=== PATIENT | female | born 1940 | race Hispanic/Latino ===

== ENCOUNTER → 2017-10-19 | Outpatient (CLI) | payer OTHER ==
[~2017-10-19] MED LIST: ASPI-1181 PO; ATOR-2 PO; CLOP75TA14 PO; CYAN200018 PO; DULO60CA44 PO; GADOBENATE DIMEGLUMINE 20 ML IV ONE; GLIP10TA9 PO; LISI2.5T2 PO; METO25TA6 PO; NABU500T3 PO; OMEG1CAP43 PO; PANT40TA25 PO; PSYL1CAP2 PO
== END | disposition home or self-care (01) ==
LOC: RAH 08:08
PROVIDERS: ATTEND Family Medicine
DX: D35.2 Benign neoplasm of pituitary gland (principal); J34.1 Cyst and mucocele of nose and nasal sinus
CPT/HCPCS: 70553; A9577

== ENCOUNTER → 2017-11-03 | Outpatient (CLI) | payer OTHER ==
[~2017-11-03] MED LIST changes: -GADOBENATE DIMEGLUMINE 20 ML IV ONE
== END | disposition home or self-care (01) ==
LOC: SHCH 11:56
PROVIDERS: ATTEND Internal Medicine Cardiovascular Disease
DX: I35.1 Nonrheumatic aortic (valve) insufficiency (principal)
CPT/HCPCS: 93306

== ENCOUNTER → 2017-12-04 | Outpatient (CLI) | payer OTHER ==
[~2017-12-04] VITALS: Ht 160 cm; Wt 93.0 kg
[~2017-12-04] MED LIST changes: +REGADENOSON 0.4 MG/5 ML PF SYG IVP SCH
== END | disposition home or self-care (01) ==
LOC: SHCH 08:40
PROVIDERS: ATTEND Internal Medicine Cardiovascular Disease
DX: I20.9 Angina pectoris, unspecified (principal); R05 Cough; R51 Headache
CPT/HCPCS: 78452; 93017; 96374; A9500 ×2; J2785

== ENCOUNTER → 2017-12-20 | Outpatient (CLI) | payer OTHER ==
[~2017-12-20] MED LIST changes: -REGADENOSON 0.4 MG/5 ML PF SYG IVP SCH
== END | disposition home or self-care (01) ==
LOC: RAH 10:42
PROVIDERS: ATTEND Family Medicine
DX: Z12.31 Encounter for screening mammogram for malignant neoplasm of breast (principal)
CPT/HCPCS: 77067

== ENCOUNTER → 2018-05-23 | Outpatient (CLI) | payer OTHER ==
[~2018-05-23] MED LIST changes: -CYAN200018 PO; +GABA-529 PO; +GADODIAMIDE 10 MMOL/20 ML ML IV ONE; +INSU3INS10 SQ; +ISOS30TA6 PO; -NABU500T3 PO; -PSYL1CAP2 PO
== END | disposition home or self-care (01) ==
LOC: RAH 13:49
PROVIDERS: ATTEND Neurological Surgery
DX: M27.40 Unspecified cyst of jaw (principal); D35.2 Benign neoplasm of pituitary gland; D33.2 Benign neoplasm of brain, unspecified; I10 Essential (primary) hypertension; E11.9 Type 2 diabetes mellitus without complications; E78.5 Hyperlipidemia, unspecified; Z79.899 Other long term (current) drug therapy
CPT/HCPCS: 70553; A9579

== ENCOUNTER 2018-07-14 15:43 | Emergency (ER) | payer OTHER ==
[~2018-07-14 15:43] MED LIST changes: -GADODIAMIDE 10 MMOL/20 ML ML IV ONE
[2018-07-14] MEDS ORDERED: ASPIRIN 325 MG TABLET ONE (15:59)
[2018-07-14 16:14] LABS: BASOPHILS % (AUTO) 1.3 % (0.0-5.0); EOSINOPHILS % (AUTO) 2.1 % (0.0-8.0); HEMATOCRIT 35.4 % (36-48); LYMPHOCYTES % (AUTO) 24.1 % (21.0-51.0); MEAN CORPUSCULAR HEMOGLOBIN 30.5 pg (27.0-33.0); MEAN CORPUSCULAR HGB CONC 33.9 g/dL (32.0-36.0); MONOCYTES % (AUTO) 5.4 % (3.0-13.0); NEUTROPHILS % (AUTO) 67.1 % (40.0-77.0); PLATELET COUNT (AUTO) 240 K/uL (130-400); RED BLOOD CELL COUNT(AUTO) 3.93 MIL/uL (4.00-5.50); RED CELL DISTRIBUTION WIDTH 15.1 % (11.0-15.5); WHITE BLOOD COUNT (AUTO) 7.9 K/uL (4.8-10.8)
[2018-07-14 16:36] LABS: B-TYPE NATRIURETIC PEPTIDE 116 pg/mL (0-100)
[2018-07-14 16:38] LABS: CREATININE 0.9 mg/dL (0.5-1.5)
[2018-07-14 16:40] LABS: ALBUMIN 3.1 g/dL (3.5-5.0); BILIRUBIN,TOTAL 0.4 mg/dL (0.2-1.0); TOTAL PROTEIN, SERUM 6.9 g/dL (6.0-8.3)
[2018-07-14] MEDS ORDERED: NITROGLYCERIN 1GM/1 INCH PACKET TD ONE (16:42)
[2018-07-14 18:40] LABS: APPEARANCE,URINE Clear (CLEAR); BILIRUBIN,URINE Negative (NEGATIVE); COLOR,URINE Yellow (YELLOW); GLUCOSE, URINE (UA) Negative (NEGATIVE); KETONES,URINE Negative (NEGATIVE); LEUKOCYTE ESTERASE ,URINE Negative (NEGATIVE); NITRATE,URINE Negative (NEGATIVE); OCCULT BLOOD,URINE Negative (NEGATIVE); PH,URINE 7.5 (5.0-8.0); PROTEIN,URINE Negative (NEGATIVE); UROBILINOGEN,URINE 0.2 mg/dL (0.2-1.0)
== END 2018-07-14 20:12 | disposition home or self-care (01) ==
LOC: EDH 15:43
DX: R07.9 Chest pain, unspecified (principal); E11.9 Type 2 diabetes mellitus without complications; I10 Essential (primary) hypertension; I38 Endocarditis, valve unspecified; Z91.040 Latex allergy status; Z91.048 Other nonmedicinal substance allergy status; Z87.891 Personal history of nicotine dependence; Z98.890 Other specified postprocedural states
CPT/HCPCS: 36415; 71045; 80053; 81003; 82550; 83880; 84484; 85025; 93005

== ENCOUNTER → 2019-01-04 | Outpatient (CLI) | payer OTHER | END | disposition home or self-care (01) | LOC: RAH 13:00 | PROVIDERS: ATTEND Family Medicine | DX: Z12.31 Encounter for screening mammogram for malignant neoplasm of breast (principal) | CPT/HCPCS: 77067 ==

== ENCOUNTER 2019-04-09 19:51 | Emergency (ER) | payer OTHER ==
[2019-04-09 20:18] LABS: EOSINOPHILS % (AUTO) 1.4 % (0.0-8.0); HEMATOCRIT 41.9 % (36-48); MEAN CORPUSCULAR HGB CONC 33.7 g/dL (32.0-36.0); MONOCYTES % (AUTO) 6.7 % (3.0-13.0); NEUTROPHILS % (AUTO) 68.9 % (40.0-77.0); NUCLEATED RED BLOOD CELLS 0.1 % (0.0-0.19); PLATELET COUNT (AUTO) 267 K/uL (130-400); RED BLOOD CELL COUNT(AUTO) 4.56 MIL/uL (4.00-5.50); RED CELL DISTRIBUTION WIDTH 13.7 % (11.0-15.5); WHITE BLOOD COUNT (AUTO) 10.6 K/uL (4.8-10.8)
[2019-04-09] MEDS ORDERED: TETANUS/DIPHTHERIA TOXOID [ADULT] 0.5 ML VIAL IM ONE (20:22)
[2019-04-09 20:23] LABS: CARBON DIOXIDE 29 mmol/L (21-32); CHLORIDE 94 mmol/L (101-111); CREATININE 0.9 mg/dL (0.5-1.5); GLOMERULAR FILTR. RATE CALC 64 mL/min (>60); GLUCOSE,RANDOM 278 mg/dL (70-105); POTASSIUM 4.6 mmol/L (3.5-5.1); SODIUM SERUM 130 mmol/L (136-145); UREA NITROGEN, BLOOD 18 mg/dL (7-18)
[2019-04-09 20:27] LABS: ALANINE AMINOTRANSFERASE 29 U/L (12-78); ALBUMIN 3.6 g/dL (3.5-5.0); ALCOHOL, BLOOD < 3 mg/dL (0-10); ASPARTATE AMINOTRANSFERASE 26 U/L (10-37); BILIRUBIN,TOTAL 0.5 mg/dL (0.2-1.0); CREATINE KINASE, TOTAL 82 U/L (21-232); LIPASE 90 U/L (114-286)
[2019-04-09 20:37] LABS: INR 0.95 (0.85-1.15); PARTIAL THROMBOPLASTIN TIME 27.6 SEC (26.3-35.5)
[2019-04-09] MEDS ORDERED: ACETAMINOPHEN EXTRA STRENGTH 500 MG TABLET ONE (21:14)
== END 2019-04-10 00:24 | disposition home or self-care (01) ==
LOC: EDH 19:51
DX: S16.1XXA Strain of muscle, fascia and tendon at neck level, initial encounter (principal); S46.911A Strain of unspecified muscle, fascia and tendon at shoulder and upper arm level, right arm, initial encounter; S00.83XA Contusion of other part of head, initial encounter; R07.89 Other chest pain; E11.9 Type 2 diabetes mellitus without complications; I10 Essential (primary) hypertension; Z91.040 Latex allergy status; Z88.8 Allergy status to other drugs, medicaments and biological substances; Z98.890 Other specified postprocedural states; Z95.1 Presence of aortocoronary bypass graft; W01.0XXA Fall on same level from slipping, tripping and stumbling without subsequent striking against object, initial encounter; Y93.89 Activity, other specified; Y92.89 Other specified places as the place of occurrence of the external cause; Y99.8 Other external cause status
CPT/HCPCS: 36415; 70450; 71045; 72125; 73030; 80053; 82550; 83690; 84484 ×2; 85025; 85610; 85730; 86850; 86900; 86901; 90471; 90714; 93005 ×2; 99285; G0480

== ENCOUNTER 2019-11-12 09:02 | Emergency (ER) | payer OTHER ==
[2019-11-12 09:34] LABS: BASOPHILS % (AUTO) 0.3 % (0.0-5.0); EOSINOPHILS % (AUTO) 2.3 % (0.0-8.0); LYMPHOCYTES % (AUTO) 22.7 % (21.0-51.0); MEAN CORPUSCULAR HEMOGLOBIN 30.2 pg (27.0-33.0); MEAN CORPUSCULAR HGB CONC 33.3 g/dL (32.0-36.0); MEAN CORPUSCULAR VOLUME 90.9 fL (79-99); MONOCYTES % (AUTO) 5.5 % (3.0-13.0); NEUTROPHILS % (AUTO) 68.7 % (40.0-77.0); PLATELET COUNT (AUTO) 235 K/uL (130-400); RED CELL DISTRIBUTION WIDTH 13.3 % (11.0-15.5); WHITE BLOOD COUNT (AUTO) 7.4 K/uL (4.8-10.8)
[2019-11-12 09:52] LABS: B-TYPE NATRIURETIC PEPTIDE 20 pg/mL (0-100)
[2019-11-12 09:55] LABS: CREATININE 0.8 mg/dL (0.5-1.5); POTASSIUM 4.4 mmol/L (3.5-5.1)
[2019-11-12 09:56] LABS: PROTHROMBIN TIME 10.5 SEC (9.6-11.6)
[2019-11-12 10:03] LABS: ALBUMIN 3.2 g/dL (3.5-5.0); BILIRUBIN,TOTAL 0.6 mg/dL (0.2-1.0); TOTAL PROTEIN, SERUM 7.3 g/dL (6.0-8.3)
[2019-11-12] MEDS ORDERED: NITROGLYCERIN 1GM/1 INCH PACKET TD ONE (11:07)
== END 2019-11-12 15:28 | disposition home or self-care (01) ==
LOC: EDH 09:02
DX: R06.00 Dyspnea, unspecified (principal); R00.2 Palpitations; E11.9 Type 2 diabetes mellitus without complications; I10 Essential (primary) hypertension; Z98.890 Other specified postprocedural states; Z87.891 Personal history of nicotine dependence; Z88.6 Allergy status to analgesic agent; Z91.040 Latex allergy status
CPT/HCPCS: 36415; 71045; 80053; 82550; 83880; 84484; 85025; 85378; 85610; 85730; 93005

== ENCOUNTER → 2020-01-02 | Outpatient (CLI) | payer OTHER ==
[~2020-01-02] VITALS: Ht 160 cm; Wt 90.3 kg
[~2020-01-02] MED LIST changes: +REGADENOSON 0.4 MG/5 ML PF SYG IVP SCH
== END | disposition home or self-care (01) ==
LOC: SHCH 09:00
PROVIDERS: ATTEND Internal Medicine Cardiovascular Disease
DX: I20.9 Angina pectoris, unspecified (principal)
CPT/HCPCS: 78452; 93017; 96374; A9500 ×2; J2785

== ENCOUNTER → 2020-01-06 | Outpatient (CLI) | payer OTHER ==
[~2020-01-06] MED LIST changes: -REGADENOSON 0.4 MG/5 ML PF SYG IVP SCH
== END | disposition home or self-care (01) ==
LOC: SHCH 11:12
PROVIDERS: ATTEND Internal Medicine Cardiovascular Disease
DX: Z95.3 Presence of xenogenic heart valve (principal); I20.9 Angina pectoris, unspecified; I51.7 Cardiomegaly
CPT/HCPCS: 93306; 93356

== ENCOUNTER → 2020-08-10 | Outpatient (CLI) | payer OTHER ==
[~2020-08-10] VITALS: Ht 162.6 cm; Wt 93.9 kg
[~2020-08-10] MED LIST changes: -ASPI-1181 PO; +ASPI-1443 PO; -GABA-529 PO; -GLIP10TA9 PO; +INSU100V37 SQ; -INSU3INS10 SQ; +LIRA0.6P SQ; +OMEG1200 PO; -OMEG1CAP43 PO; -PANT40TA25 PO
[2020-08-10 12:25] VITALS: BP 151/66
[2020-08-10 12:57] LABS: BASOPHILS % (AUTO) 0.2 % (0.0-5.0); EOSINOPHILS % (AUTO) 0.8 % (0.0-8.0); HEMATOCRIT 43.1 % (36-48); LYMPHOCYTES % (AUTO) 18.6 % (21.0-51.0); MEAN CORPUSCULAR HGB CONC 32.5 g/dL (32.0-36.0); MEAN CORPUSCULAR VOLUME 92.3 fL (79-99); MONOCYTES % (AUTO) 4.3 % (3.0-13.0); NEUTROPHILS % (AUTO) 75.6 % (40.0-77.0); PLATELET COUNT (AUTO) 272 K/uL (130-400); RED BLOOD CELL COUNT(AUTO) 4.67 MIL/uL (4.00-5.50); RED CELL DISTRIBUTION WIDTH 13.7 % (11.0-15.5); WHITE BLOOD COUNT (AUTO) 14.7 K/uL (4.8-10.8)
[2020-08-10 13:03] LABS: APPEARANCE,URINE Clear (CLEAR); BILIRUBIN,URINE Negative (NEGATIVE); COLOR,URINE Yellow (YELLOW); GLUCOSE, URINE (UA) >=1000 mg/dL (NEGATIVE); KETONES,URINE Negative (NEGATIVE); LEUKOCYTE ESTERASE ,URINE Negative (NEGATIVE); NITRATE,URINE Negative (NEGATIVE); OCCULT BLOOD,URINE Negative (NEGATIVE); PH,URINE 6.5 (5.0-8.0); PROTEIN,URINE Trace mg/dL (NEGATIVE)
[2020-08-10 13:08] LABS: BACTERIA,URINE Rare /HPF (None Seen); RBC,URINE 0-1 /HPF (0-1); WBC,URINE 0-1 /HPF (0-1)
[2020-08-10 13:09] LABS: CREATININE 0.9 mg/dL (0.5-1.5)
[2020-08-10 13:09] LABS: SQUAMOUS EPITHELIAL CELL,UR Few /HPF (0-2)
[2020-08-10 13:23] LABS: PARTIAL THROMBOPLASTIN TIME 25.7 SEC (26.3-35.5)
[2020-08-10 13:39] LABS: INR 0.94 (0.85-1.15); PROTHROMBIN TIME 10.2 SEC (9.6-11.6)
--- NOTE | 2020-08-11 14:02 | NUR ---
PT WITH ABNORMAL WBC AND SYMPTOMS OF THROAT AND EAR PAIN. TREVON BUSH PAGED.
== END ==
LOC: EDSTATUS 11:00 → DAH 11:19
PROVIDERS: ATTEND Internal Medicine Cardiovascular Disease
DX: Z01.812 Encounter for preprocedural laboratory examination (principal); I25.119 Atherosclerotic heart disease of native coronary artery with unspecified angina pectoris; I10 Essential (primary) hypertension; R07.89 Other chest pain; E11.9 Type 2 diabetes mellitus without complications; E78.5 Hyperlipidemia, unspecified; Z79.82 Long term (current) use of aspirin; Z79.899 Other long term (current) drug therapy
CPT/HCPCS: 36415; 71045; 80048; 81001; 85025; 85610; 85730; 93005

== ENCOUNTER 2020-10-26 21:07 | Emergency (ER) | payer OTHER ==
[~2020-10-26 21:07] MED LIST changes: +0.9%NACL 1000ML 1,000 ML IV ONE; -DULO60CA44 PO; +DULO60CA45 PO; -ISOS30TA6 PO; +ISOS30TA92 PO; +LISI2.5T13 PO; -LISI2.5T2 PO
[2020-10-26] MEDS ORDERED: FENTANYL CITRATE PF 50 MCG/1 ML 2ML VIAL ONE (21:34)
[2020-10-26 21:39] LABS: BASOPHILS % (AUTO) 0.4 % (0.0-5.0); EOSINOPHILS % (AUTO) 0.8 % (0.0-8.0); HEMATOCRIT 41.4 % (36-48); LYMPHOCYTES % (AUTO) 16.5 % (21.0-51.0); MEAN CORPUSCULAR HEMOGLOBIN 30.6 pg (27.0-33.0); MEAN CORPUSCULAR HGB CONC 32.9 g/dL (32.0-36.0); MONOCYTES % (AUTO) 5.4 % (3.0-13.0); NEUTROPHILS % (AUTO) 76.2 % (40.0-77.0); PLATELET COUNT (AUTO) 281 K/uL (130-400); RED BLOOD CELL COUNT(AUTO) 4.45 MIL/uL (4.00-5.50); RED CELL DISTRIBUTION WIDTH 14.3 % (11.0-15.5); WHITE BLOOD COUNT (AUTO) 10.3 K/uL (4.8-10.8)
[2020-10-26 21:51] LABS: INR 0.99 (0.85-1.15); PROTHROMBIN TIME 10.8 SEC (9.6-11.6)
[2020-10-26 21:52] LABS: PARTIAL THROMBOPLASTIN TIME 25.8 SEC (26.3-35.5)
[2020-10-26] MEDS ORDERED: KETAMINE 50MG/ML SYRINGE 50 MG/ML DISP.SYRIN IV ONE (21:57)
[2020-10-26 22:01] LABS: POTASSIUM 4.9 mmol/L (3.5-5.1)
[2020-10-27] MEDS ORDERED: INSULIN HUMULIN R 100 UNIT/ML 3ML ONE ×2 (00:20→01:32)
== END 2020-10-27 02:50 | disposition home or self-care (01) ==
LOC: EDH 21:07
DX: S43.084A Other dislocation of right shoulder joint, initial encounter (principal); E11.65 Type 2 diabetes mellitus with hyperglycemia; E78.00 Pure hypercholesterolemia, unspecified; I10 Essential (primary) hypertension; Z98.890 Other specified postprocedural states; Z91.040 Latex allergy status; Z88.6 Allergy status to analgesic agent; W18.39XA Other fall on same level, initial encounter; Y93.01 Activity, walking, marching and hiking; Y92.89 Other specified places as the place of occurrence of the external cause; Y99.8 Other external cause status
CPT/HCPCS: 23650; 36415; 70450; 73020; 73030; 80048; 82948 ×2; 85025; 85610; 85730; 93005; 96361; 96374; 96375 ×2; 96376; 99152; 99285; J1815 ×2; J3010; J3490; J7030

== ENCOUNTER 2021-06-03 15:12 | Emergency (ER) | payer OTHER, MEDICARE ==
[~2021-06-03] VITALS: Ht 160 cm; Wt 88.9 kg
[~2021-06-03 15:12] MED LIST changes: -0.9%NACL 1000ML 1,000 ML IV ONE; +DULO60CA44 PO; -DULO60CA45 PO
[2021-06-03 15:14] VITALS: BP 149/57
[2021-06-03 16:08] LABS: BASOPHILS % (AUTO) 0.3 % (0.0-5.0); EOSINOPHILS % (AUTO) 1.6 % (0.0-8.0); HEMATOCRIT 38.4 % (36-48); LYMPHOCYTES % (AUTO) 23.2 % (21.0-51.0); MEAN CORPUSCULAR HEMOGLOBIN 30.5 pg (27.0-33.0); MEAN CORPUSCULAR HGB CONC 33.1 g/dL (32.0-36.0); MEAN CORPUSCULAR VOLUME 92.3 fL (79-99); MONOCYTES % (AUTO) 4.8 % (3.0-13.0); NEUTROPHILS % (AUTO) 69.7 % (40.0-77.0); PLATELET COUNT (AUTO) 267 K/uL (130-400); RED BLOOD CELL COUNT(AUTO) 4.16 MIL/uL (4.00-5.50); RED CELL DISTRIBUTION WIDTH 13.9 % (11.0-15.5); WHITE BLOOD COUNT (AUTO) 9.1 K/uL (4.8-10.8)
[2021-06-03 16:10] LABS: APPEARANCE,URINE Clear (CLEAR); BILIRUBIN,URINE Negative (NEGATIVE); COLOR,URINE Yellow (YELLOW); GLUCOSE, URINE (UA) Negative (NEGATIVE); KETONES,URINE Negative (NEGATIVE); LEUKOCYTE ESTERASE ,URINE Negative (NEGATIVE); NITRATE,URINE Negative (NEGATIVE); OCCULT BLOOD,URINE Negative (NEGATIVE); PROTEIN,URINE Negative (NEGATIVE)
[2021-06-03 16:15] VITALS: BP 139/65
[2021-06-03 16:18] LABS: CREATININE 0.8 mg/dL (0.5-1.5); POTASSIUM 4.3 mmol/L (3.5-5.1)
[2021-06-03 16:23] LABS: ALBUMIN 3.4 g/dL (3.5-5.0); BILIRUBIN,TOTAL 0.6 mg/dL (0.2-1.0); TOTAL PROTEIN, SERUM 7.4 g/dL (6.0-8.3)
[2021-06-03] MEDS ORDERED: METH4TAB3 PO (19:06)
== END 2021-06-03 19:30 | disposition home or self-care (01) ==
LOC: EDH 15:12
DX: M54.6 Pain in thoracic spine (principal); M79.18 Myalgia, other site; R10.11 Right upper quadrant pain; E11.9 Type 2 diabetes mellitus without complications; E78.00 Pure hypercholesterolemia, unspecified; I10 Essential (primary) hypertension; Z79.4 Long term (current) use of insulin; Z79.82 Long term (current) use of aspirin; Z79.899 Other long term (current) drug therapy
CPT/HCPCS: 36415; 74176; 80053; 81003; 82150; 83690; 85025; 93005

== ENCOUNTER 2021-07-02 17:28 | Emergency (ER) | payer OTHER, MEDICARE ==
[~2021-07-02] VITALS: Ht 160 cm; Wt 88.9 kg
[~2021-07-02 17:28] MED LIST changes: -DULO60CA44 PO; +DULO60CA45 PO; +METH4TAB3 PO
[2021-07-02 17:57] LABS: BASOPHILS % (AUTO) 0.5 % (0.0-5.0); EOSINOPHILS % (AUTO) 1.7 % (0.0-8.0); HEMATOCRIT 39.2 % (36-48); LYMPHOCYTES % (AUTO) 21.7 % (21.0-51.0); MEAN CORPUSCULAR HEMOGLOBIN 30.4 pg (27.0-33.0); MEAN CORPUSCULAR HGB CONC 33.2 g/dL (32.0-36.0); MEAN CORPUSCULAR VOLUME 91.8 fL (79-99); MONOCYTES % (AUTO) 5.6 % (3.0-13.0); NEUTROPHILS % (AUTO) 70.1 % (40.0-77.0); PLATELET COUNT (AUTO) 266 K/uL (130-400); RED BLOOD CELL COUNT(AUTO) 4.27 MIL/uL (4.00-5.50); RED CELL DISTRIBUTION WIDTH 13.9 % (11.0-15.5); WHITE BLOOD COUNT (AUTO) 9.6 K/uL (4.8-10.8)
[2021-07-02] MEDS ORDERED: ONDANSETRON 4MG INJ ONE (17:58)
[2021-07-02 18:13] LABS: CREATININE 0.8 mg/dL (0.5-1.5); POTASSIUM 4.4 mmol/L (3.5-5.1)
[2021-07-02 18:22] LABS: ALBUMIN 3.5 g/dL (3.5-5.0); BILIRUBIN,TOTAL 0.6 mg/dL (0.2-1.0); TOTAL PROTEIN, SERUM 7.7 g/dL (6.0-8.3)
[2021-07-02] MEDS ORDERED: 0.9%NACL 1000ML 1,000 ML IV ONE ×2 (18:29→19:30)
[2021-07-02] MEDS ORDERED: ONDANSETRON 4MG INJ IVP ONE (19:00)
[2021-07-02 19:17] VITALS: BP 140/59
[2021-07-02 19:25] LABS: APPEARANCE,URINE Clear (CLEAR); BILIRUBIN,URINE Negative (NEGATIVE); COLOR,URINE Yellow (YELLOW); GLUCOSE, URINE (UA) Negative (NEGATIVE); KETONES,URINE Negative (NEGATIVE); LEUKOCYTE ESTERASE ,URINE Negative (NEGATIVE); NITRATE,URINE Negative (NEGATIVE); OCCULT BLOOD,URINE Negative (NEGATIVE); PROTEIN,URINE Negative (NEGATIVE)
[2021-07-02] MEDS ORDERED: ONDA4TAB10 PO (19:47)
[2021-07-02] MEDS ORDERED: DICY20TA2 PO (19:47)
== END 2021-07-02 20:13 | disposition home or self-care (01) ==
LOC: EDH 17:28
DX: K57.30 Diverticulosis of large intestine without perforation or abscess without bleeding (principal); K43.9 Ventral hernia without obstruction or gangrene; E11.9 Type 2 diabetes mellitus without complications; E78.00 Pure hypercholesterolemia, unspecified; I10 Essential (primary) hypertension; I25.10 Atherosclerotic heart disease of native coronary artery without angina pectoris; E66.9 Obesity, unspecified; Z79.4 Long term (current) use of insulin; Z79.52 Long term (current) use of systemic steroids; Z79.82 Long term (current) use of aspirin; Z79.899 Other long term (current) drug therapy; Z68.34 Body mass index [BMI] 34.0-34.9, adult
CPT/HCPCS: 36415; 71045; 74176; 80053; 81003; 83690; 84484; 85025; 86140; 93005; 96361; 96374; 99285; J2405; J7030

== ENCOUNTER 2021-07-05 11:30 | Inpatient (IN) | payer OTHER, MEDICARE ==
[~2021-07-05] VITALS: Ht 160 cm; Wt 88.9 kg
[~2021-07-05 11:30] MED LIST changes: +DICY20TA2 PO; +ONDA4TAB10 PO
[2021-07-05] MEDS ORDERED: DEXL60CA3 PO (12:20)
[2021-07-05] MEDS ORDERED: DEXTROSE 50%-WATER 50 ML DISP.SYRIN IV PRN (14:00)
[2021-07-05] MEDS ORDERED: HYDRALAZINE 20MG/ML VIAL IV PRN (14:00)
[2021-07-05] MEDS ORDERED: MORPHINE 4 MG SYG IV PRN (14:00)
[2021-07-05] MEDS ORDERED: DICYCLOMINE HCL 20 MG TAB PO SCH (14:00)
[2021-07-05] MEDS ORDERED: MAG/ALUM/SIMETH 30 ML UDCUP PO PRN (14:00)
[2021-07-05] MEDS ORDERED: ONDANSETRON 4MG INJ IV PRN (14:00)
[2021-07-05] MEDS ORDERED: NITROGLYCERIN 0.4 MG SL TAB SL PRN (14:00)
[2021-07-05] MEDS ORDERED: GUAIFENESIN-DM 200/20 MG 10 ML PO PRN (14:00)
[2021-07-05] MEDS ORDERED: ACETAMINOPHEN 325 MG TAB PO PRN (14:00)
[2021-07-05] MEDS ORDERED: GLUCAGON 1MG KIT 1 MG ML IM PRN (14:00)
[2021-07-05 14:04] LABS: BASOPHILS % (AUTO) 0.5 % (0.0-5.0); EOSINOPHILS % (AUTO) 1.1 % (0.0-8.0); HEMATOCRIT 38.2 % (36-48); LYMPHOCYTES % (AUTO) 16.4 % (21.0-51.0); MEAN CORPUSCULAR HEMOGLOBIN 30.8 pg (27.0-33.0); MEAN CORPUSCULAR HGB CONC 33.5 g/dL (32.0-36.0); MEAN CORPUSCULAR VOLUME 91.8 fL (79-99); MONOCYTES % (AUTO) 5.3 % (3.0-13.0); NEUTROPHILS % (AUTO) 76.4 % (40.0-77.0); PLATELET COUNT (AUTO) 263 K/uL (130-400); RED BLOOD CELL COUNT(AUTO) 4.16 MIL/uL (4.00-5.50); RED CELL DISTRIBUTION WIDTH 13.8 % (11.0-15.5)
[2021-07-05 14:11] LABS: CREATININE 0.8 mg/dL (0.5-1.5); POTASSIUM 4.7 mmol/L (3.5-5.1)
[2021-07-05 14:13] LABS: HEMOGLOBIN A1C 8.1 % (4.0-6.0)
[2021-07-05 14:15] LABS: ALBUMIN 3.4 g/dL (3.5-5.0); BILIRUBIN,TOTAL 0.6 mg/dL (0.2-1.0); CRP QUANTITATIVE 8.6 mg/L (0.00-9.0); TOTAL PROTEIN, SERUM 7.3 g/dL (6.0-8.3)
[2021-07-05 14:16] LABS: APPEARANCE,URINE Clear (CLEAR); BILIRUBIN,URINE Negative (NEGATIVE); COLOR,URINE Yellow (YELLOW); GLUCOSE, URINE (UA) Negative (NEGATIVE); KETONES,URINE Negative (NEGATIVE); LEUKOCYTE ESTERASE ,URINE Negative (NEGATIVE); NITRATE,URINE Negative (NEGATIVE); OCCULT BLOOD,URINE Negative (NEGATIVE); PROTEIN,URINE Negative (NEGATIVE)
[2021-07-05] MEDS: PANTOPRAZOLE 40 MG TAB DR PO SCH (16:10)
[2021-07-05 17:22] VITALS: BP 140/59
[2021-07-05] MEDS ORDERED: IOHEXOL-350 75 ML VIAL IV ONE (18:14)
[2021-07-05 20:21] VITALS: BP 133/51
[2021-07-05] MEDS: INSULIN HUMULIN R 100 UNIT/ML 3ML SQ SCH (20:25)
[2021-07-05] MEDS: ATORVASTATIN 40 MG TABLET PO SCH (20:30)
[2021-07-05] MEDS: METOPROLOL TARTRATE 25 MG TAB PO SCH (20:31)
[2021-07-05] MEDS ORDERED: FAMOTIDINE 20MG VIAL IV SCH (21:00)
[2021-07-05] MEDS ORDERED: HYDROXYZINE 25 MG TABLET ONE (23:07)
[2021-07-05] MEDS ORDERED: HYDROXYZINE 25 MG TABLET PO ONE (23:30)
[2021-07-06] VITALS (8 sets, daily range): BP systolic 106–170; BP diastolic 40–69
[2021-07-06] MEDS: INSULIN HUMULIN R 100 UNIT/ML 3ML SQ SCH ×4 (05:56→20:30)
[2021-07-06] MEDS: ISOSORBIDE MONO 30MG SR TAB PO SCH (08:42)
[2021-07-06] MEDS: LISINOPRIL 2.5 MG TABLET PO SCH (08:42)
[2021-07-06] MEDS: METOPROLOL TARTRATE 25 MG TAB PO SCH ×2 (08:42→20:25)
[2021-07-06] MEDS: FISH OIL 1000 MG/CAP PO SCH (09:00)
[2021-07-06] MEDS: ASPIRIN 81 MG EC TAB PO SCH (09:00)
[2021-07-06] MEDS: LIRAGLUTIDE 1.8 MG SQ SCH (09:00)
[2021-07-06] MEDS: PANTOPRAZOLE 40 MG TAB DR PO SCH (09:00)
[2021-07-06] MEDS: INSULIN DEGLUDEC 50 UNIT SQ SCH (09:00)
[2021-07-06] MEDS: CLOPIDOGREL 75MG TAB PO SCH (09:00)
[2021-07-06] MEDS: DULOXETINE HCL 30 MG CAP PO SCH (09:00)
[2021-07-06] MEDS: ACETAMINOPHEN WITH CODEINE 1 TAB TAB PO PRN (19:18)
[2021-07-06] MEDS: ATORVASTATIN 40 MG TABLET PO SCH (20:25)
[2021-07-06] MEDS ORDERED: TRAZODONE HCL 50 MG TAB PO SCH (22:30)
[2021-07-07 04:10] VITALS: BP 102/55
[2021-07-07] MEDS: INSULIN HUMULIN R 100 UNIT/ML 3ML SQ SCH ×4 (06:00→21:38)
[2021-07-07] MEDS: LACTULOSE 20 GM/30 ML UDCUP PO PRN (06:07)
[2021-07-07 08:00] VITALS: BP 122/56
[2021-07-07] MEDS: LIRAGLUTIDE 1.8 MG SQ SCH (09:00)
[2021-07-07] MEDS: INSULIN DEGLUDEC 50 UNIT SQ SCH (09:00)
[2021-07-07] MEDS: LISINOPRIL 2.5 MG TABLET PO SCH (09:09)
[2021-07-07] MEDS: DULOXETINE HCL 30 MG CAP PO SCH (09:09)
[2021-07-07] MEDS: FISH OIL 1000 MG/CAP PO SCH (09:09)
[2021-07-07] MEDS: CLOPIDOGREL 75MG TAB PO SCH (09:09)
[2021-07-07] MEDS: PANTOPRAZOLE 40 MG TAB DR PO SCH (09:09)
[2021-07-07] MEDS: ISOSORBIDE MONO 30MG SR TAB PO SCH (09:10)
[2021-07-07] MEDS: ASPIRIN 81 MG EC TAB PO SCH (09:10)
[2021-07-07] MEDS: METOPROLOL TARTRATE 25 MG TAB PO SCH ×2 (09:10→21:31)
[2021-07-07 12:00] VITALS: BP 90/45
[2021-07-07 16:00] VITALS: BP 95/41
[2021-07-07 20:05] VITALS: BP 106/44
[2021-07-07] MEDS: ATORVASTATIN 40 MG TABLET PO SCH (21:32)
[2021-07-07 23:28] VITALS: BP 106/49
[2021-07-08 03:08] VITALS: BP 90/45
[2021-07-08] MEDS: INSULIN HUMULIN R 100 UNIT/ML 3ML SQ SCH ×4 (05:42→20:44)
[2021-07-08 08:00] VITALS: BP 125/55
[2021-07-08] MEDS: DULOXETINE HCL 30 MG CAP PO SCH (09:00)
[2021-07-08] MEDS: PANTOPRAZOLE 40 MG TAB DR PO SCH (09:00)
[2021-07-08] MEDS: FISH OIL 1000 MG/CAP PO SCH (09:00)
[2021-07-08] MEDS: LIRAGLUTIDE 1.8 MG SQ SCH (09:00)
[2021-07-08] MEDS: INSULIN DEGLUDEC 50 UNIT SQ SCH (09:00)
[2021-07-08] MEDS: METOPROLOL TARTRATE 25 MG TAB PO SCH ×2 (09:10→20:36)
[2021-07-08] MEDS: ISOSORBIDE MONO 30MG SR TAB PO SCH (09:10)
[2021-07-08] MEDS: LISINOPRIL 2.5 MG TABLET PO SCH (09:10)
[2021-07-08 12:00] VITALS: BP 119/47
[2021-07-08 16:00] VITALS: BP 96/48
[2021-07-08 19:39] VITALS: BP 100/48
[2021-07-08] MEDS: ATORVASTATIN 40 MG TABLET PO SCH (20:36)
[2021-07-08] MEDS: ACETAMINOPHEN WITH CODEINE 1 TAB TAB PO PRN (20:50)
[2021-07-08] MEDS: HYDROCODONE/ACETAMINOPHEN 5/325 MG TAB PO PRN (23:13)
[2021-07-09 00:33] VITALS: BP 104/40
[2021-07-09] MEDS ORDERED: MORPHINE 4 MG SYG IV PRN (02:00)
[2021-07-09 04:15] VITALS: BP 98/41
[2021-07-09] MEDS: INSULIN HUMULIN R 100 UNIT/ML 3ML SQ SCH ×4 (06:59→21:54)
[2021-07-09 07:30] VITALS: BP 126/57
[2021-07-09] MEDS: INSULIN DEGLUDEC 50 UNIT SQ SCH (09:00)
[2021-07-09] MEDS: LIRAGLUTIDE 1.8 MG SQ SCH (09:00)
[2021-07-09] MEDS: METOPROLOL TARTRATE 25 MG TAB PO SCH ×2 (10:12→21:33)
[2021-07-09] MEDS: LISINOPRIL 2.5 MG TABLET PO SCH (10:12)
[2021-07-09] MEDS: ISOSORBIDE MONO 30MG SR TAB PO SCH (10:12)
[2021-07-09] MEDS: PANTOPRAZOLE 40 MG TAB DR PO SCH (10:12)
[2021-07-09] MEDS: FISH OIL 1000 MG/CAP PO SCH (10:13)
[2021-07-09] MEDS: DULOXETINE HCL 30 MG CAP PO SCH (10:16)
[2021-07-09 11:25] VITALS: BP 108/50
[2021-07-09 15:30] VITALS: BP 119/52
[2021-07-09] MEDS: HYDROCODONE/ACETAMINOPHEN 5/325 MG TAB PO PRN ×2 (16:23→22:53)
[2021-07-09 20:18] VITALS: BP 116/56
[2021-07-09] MEDS: ATORVASTATIN 40 MG TABLET PO SCH (21:33)
[2021-07-09] MEDS: LACTULOSE 20 GM/30 ML UDCUP PO PRN (21:37)
[2021-07-10] VITALS (7 sets, daily range): BP systolic 104–150; BP diastolic 50–63
[2021-07-10 04:37] LABS: BASOPHILS % (AUTO) 0.4 % (0.0-5.0); HEMATOCRIT 36.6 % (36-48); LYMPHOCYTES % (AUTO) 31.8 % (21.0-51.0); MEAN CORPUSCULAR HEMOGLOBIN 30.6 pg (27.0-33.0); MEAN CORPUSCULAR HGB CONC 33.1 g/dL (32.0-36.0); MEAN CORPUSCULAR VOLUME 92.4 fL (79-99); MONOCYTES % (AUTO) 6.2 % (3.0-13.0); NEUTROPHILS % (AUTO) 58.2 % (40.0-77.0); PLATELET COUNT (AUTO) 258 K/uL (130-400); RED BLOOD CELL COUNT(AUTO) 3.96 MIL/uL (4.00-5.50); RED CELL DISTRIBUTION WIDTH 13.6 % (11.0-15.5); WHITE BLOOD COUNT (AUTO) 7.4 K/uL (4.8-10.8)
[2021-07-10 04:53] LABS: ALBUMIN 2.7 g/dL (3.5-5.0); BILIRUBIN,TOTAL 0.2 mg/dL (0.2-1.0); TOTAL PROTEIN, SERUM 6.8 g/dL (6.0-8.3)
[2021-07-10] MEDS: INSULIN HUMULIN R 100 UNIT/ML 3ML SQ SCH ×4 (07:01→21:15)
[2021-07-10] MEDS: INSULIN DEGLUDEC 50 UNIT SQ SCH (09:00)
[2021-07-10] MEDS: LIRAGLUTIDE 1.8 MG SQ SCH (09:00)
[2021-07-10] MEDS: FISH OIL 1000 MG/CAP PO SCH (09:57)
[2021-07-10] MEDS: PANTOPRAZOLE 40 MG TAB DR PO SCH (09:57)
[2021-07-10] MEDS: ISOSORBIDE MONO 30MG SR TAB PO SCH (09:57)
[2021-07-10] MEDS: METOPROLOL TARTRATE 25 MG TAB PO SCH ×2 (09:57→21:13)
[2021-07-10] MEDS: DULOXETINE HCL 30 MG CAP PO SCH (09:57)
[2021-07-10] MEDS: LISINOPRIL 2.5 MG TABLET PO SCH (09:57)
[2021-07-10] MEDS: HYDROCODONE/ACETAMINOPHEN 5/325 MG TAB PO PRN (13:06)
[2021-07-10] MEDS ORDERED: TEMAZEPAM 7.5 MG CAPSULE PO ONE (21:00)
[2021-07-10] MEDS: ATORVASTATIN 40 MG TABLET PO SCH (21:13)
[2021-07-11] MEDS: DIPHENHYDRAMINE HCL 25 MG CAPSULE PO PRN ×2 (00:44→22:41)
[2021-07-11 03:31] VITALS: BP 134/60
[2021-07-11 04:33] LABS: BASOPHILS % (AUTO) 0.5 % (0.0-5.0); EOSINOPHILS % (AUTO) 3.2 % (0.0-8.0); HEMATOCRIT 38.8 % (36-48); LYMPHOCYTES % (AUTO) 33.5 % (21.0-51.0); MEAN CORPUSCULAR HEMOGLOBIN 30.1 pg (27.0-33.0); MEAN CORPUSCULAR VOLUME 94.2 fL (79-99); MONOCYTES % (AUTO) 5.3 % (3.0-13.0); NEUTROPHILS % (AUTO) 57.2 % (40.0-77.0); PLATELET COUNT (AUTO) 266 K/uL (130-400); RED BLOOD CELL COUNT(AUTO) 4.12 MIL/uL (4.00-5.50); RED CELL DISTRIBUTION WIDTH 13.6 % (11.0-15.5); WHITE BLOOD COUNT (AUTO) 7.8 K/uL (4.8-10.8)
[2021-07-11 04:58] LABS: ALBUMIN 3.2 g/dL (3.5-5.0); BILIRUBIN,TOTAL 0.3 mg/dL (0.2-1.0); CREATININE 0.8 mg/dL (0.5-1.5); POTASSIUM 4.4 mmol/L (3.5-5.1); TOTAL PROTEIN, SERUM 6.9 g/dL (6.0-8.3)
[2021-07-11] MEDS: INSULIN HUMULIN R 100 UNIT/ML 3ML SQ SCH ×4 (06:24→21:01)
[2021-07-11 07:25] VITALS: BP 136/69
[2021-07-11] MEDS: DULOXETINE HCL 30 MG CAP PO SCH (08:59)
[2021-07-11] MEDS: ISOSORBIDE MONO 30MG SR TAB PO SCH (08:59)
[2021-07-11] MEDS: LISINOPRIL 2.5 MG TABLET PO SCH (08:59)
[2021-07-11] MEDS: METOPROLOL TARTRATE 25 MG TAB PO SCH ×2 (08:59→21:02)
[2021-07-11] MEDS: CEFTRIAXONE 1G VIAL IVP SCH (08:59)
[2021-07-11] MEDS: INSULIN DEGLUDEC 50 UNIT SQ SCH (09:00)
[2021-07-11] MEDS: LIRAGLUTIDE 1.8 MG SQ SCH (09:00)
[2021-07-11] MEDS: FISH OIL 1000 MG/CAP PO SCH (09:00)
[2021-07-11] MEDS: PANTOPRAZOLE 40 MG TAB DR PO SCH (09:00)
[2021-07-11 11:20] VITALS: BP 124/56
[2021-07-11 15:15] VITALS: BP 128/61
[2021-07-11 19:30] VITALS: BP 122/52
[2021-07-11] MEDS: ATORVASTATIN 40 MG TABLET PO SCH (21:02)
[2021-07-11] MEDS: HYDROCODONE/ACETAMINOPHEN 5/325 MG TAB PO PRN (22:42)
[2021-07-12] VITALS (28 sets, daily range): BP systolic 104–166; BP diastolic 46–71
[2021-07-12 04:26] LABS: BASOPHILS % (AUTO) 0.5 % (0.0-5.0); EOSINOPHILS % (AUTO) 2.3 % (0.0-8.0); HEMATOCRIT 34.9 % (36-48); LYMPHOCYTES % (AUTO) 32.6 % (21.0-51.0); MEAN CORPUSCULAR HEMOGLOBIN 30.4 pg (27.0-33.0); MEAN CORPUSCULAR HGB CONC 33.5 g/dL (32.0-36.0); MEAN CORPUSCULAR VOLUME 90.6 fL (79-99); MONOCYTES % (AUTO) 5.6 % (3.0-13.0); NEUTROPHILS % (AUTO) 58.6 % (40.0-77.0); PLATELET COUNT (AUTO) 242 K/uL (130-400); RED BLOOD CELL COUNT(AUTO) 3.85 MIL/uL (4.00-5.50); RED CELL DISTRIBUTION WIDTH 13.5 % (11.0-15.5); WHITE BLOOD COUNT (AUTO) 8.3 K/uL (4.8-10.8)
[2021-07-12 04:46] LABS: BILIRUBIN,TOTAL 0.3 mg/dL (0.2-1.0); CREATININE 0.9 mg/dL (0.5-1.5); POTASSIUM 4.9 mmol/L (3.5-5.1); TOTAL PROTEIN, SERUM 6.5 g/dL (6.0-8.3)
[2021-07-12] MEDS: INSULIN HUMULIN R 100 UNIT/ML 3ML SQ SCH ×4 (06:18→20:22)
[2021-07-12] MEDS ORDERED: BUPIVACAINE/PF 0.25% 30ML VIAL IJ ONE (07:24)
[2021-07-12] MEDS ORDERED: 0.9%NACL 1000ML 0 ML IV ONE (07:33)
[2021-07-12] MEDS ORDERED: 0.9%NACL 1000ML 1,000 ML IV ONE (07:34)
[2021-07-12] MEDS ORDERED: LIDOCAINE PF 100MG/5ML (2%) SYRINGE 5ML ONE (07:37)
[2021-07-12] MEDS ORDERED: SUCCINYLCHOLINE CHLORIDE 20 MG/ML 10 ML VIAL ONE (07:37)
[2021-07-12] MEDS ORDERED: ROCURONIUM 10MG/1ML SYR 10 MG/ML ML ONE (07:38)
[2021-07-12] MEDS ORDERED: FENTANYL CITRATE PF 50 MCG/1 ML 2ML VIAL ONE (07:38)
[2021-07-12] MEDS ORDERED: PROPOFOL 10 MG/ML 20ML VIAL IV ONE (07:38)
[2021-07-12] MEDS: CEFTRIAXONE 1G VIAL IVP SCH (08:30)
[2021-07-12] MEDS ORDERED: GLYCOPYRROLATE 1 MG/5 ML SYRINGE ONE (08:36)
[2021-07-12] MEDS ORDERED: EPHEDRINE SULFATE 50 MG/ML AMPULE ONE (08:44)
[2021-07-12] MEDS ORDERED: PHENYLEPHRINE HCL 10 MG/ML 1ML VIAL IV ONE (08:53)
[2021-07-12] MEDS ORDERED: 0.9%NACL 10ML VIAL ONE (08:54)
[2021-07-12] MEDS: LIRAGLUTIDE 1.8 MG SQ SCH (09:00)
[2021-07-12] MEDS: INSULIN DEGLUDEC 50 UNIT SQ SCH (09:00)
[2021-07-12] MEDS ORDERED: NEOSTIGMINE 5MG/5ML SYR IV ONE (09:22)
[2021-07-12] MEDS ORDERED: KETOROLAC 30MG VIAL (30MG/ML) ONE (09:29)
[2021-07-12] MEDS ORDERED: ONDANSETRON 4MG INJ ONE (09:30)
[2021-07-12] MEDS ORDERED: MORPHINE 4 MG SYG IV PRN (10:00)
[2021-07-12] MEDS ORDERED: ONDANSETRON 4MG INJ IVP PRN (10:00)
[2021-07-12] MEDS: 0.9%NACL 1000ML 1,000 ML IV SCH (10:00)
[2021-07-12] MEDS: LISINOPRIL 2.5 MG TABLET PO SCH (11:35)
[2021-07-12] MEDS: PANTOPRAZOLE 40 MG TAB DR PO SCH (11:35)
[2021-07-12] MEDS: DULOXETINE HCL 30 MG CAP PO SCH (11:35)
[2021-07-12] MEDS: METOPROLOL TARTRATE 25 MG TAB PO SCH ×2 (11:35→20:20)
[2021-07-12] MEDS: ISOSORBIDE MONO 30MG SR TAB PO SCH (11:35)
[2021-07-12] MEDS: FISH OIL 1000 MG/CAP PO SCH (11:36)
[2021-07-12] MEDS: HYDROCODONE/ACETAMINOPHEN 5/325 MG TAB PO PRN (20:21)
[2021-07-12] MEDS: ATORVASTATIN 40 MG TABLET PO SCH (20:24)
[2021-07-13 00:12] VITALS: BP 102/47
[2021-07-13] MEDS: DIPHENHYDRAMINE HCL 25 MG CAPSULE PO PRN (00:21)
[2021-07-13] MEDS: HYDROCODONE/ACETAMINOPHEN 5/325 MG TAB PO PRN ×2 (03:58→15:57)
[2021-07-13 04:12] VITALS: BP 120/54
[2021-07-13 04:42] LABS: BASOPHILS % (AUTO) 0.5 % (0.0-5.0); EOSINOPHILS % (AUTO) 2.4 % (0.0-8.0); HEMATOCRIT 36.1 % (36-48); LYMPHOCYTES % (AUTO) 26.4 % (21.0-51.0); MEAN CORPUSCULAR HEMOGLOBIN 30.2 pg (27.0-33.0); MEAN CORPUSCULAR HGB CONC 32.4 g/dL (32.0-36.0); MONOCYTES % (AUTO) 5.7 % (3.0-13.0); NEUTROPHILS % (AUTO) 64.5 % (40.0-77.0); PLATELET COUNT (AUTO) 241 K/uL (130-400); RED BLOOD CELL COUNT(AUTO) 3.88 MIL/uL (4.00-5.50); RED CELL DISTRIBUTION WIDTH 13.7 % (11.0-15.5); WHITE BLOOD COUNT (AUTO) 8.8 K/uL (4.8-10.8)
[2021-07-13 05:07] LABS: ALBUMIN 2.8 g/dL (3.5-5.0); BILIRUBIN,TOTAL 0.5 mg/dL (0.2-1.0); CREATININE 0.8 mg/dL (0.5-1.5); POTASSIUM 4.3 mmol/L (3.5-5.1); TOTAL PROTEIN, SERUM 6.1 g/dL (6.0-8.3)
[2021-07-13] MEDS: INSULIN HUMULIN R 100 UNIT/ML 3ML SQ SCH ×3 (06:21→17:29)
[2021-07-13] MEDS: 0.9%NACL 1000ML 1,000 ML IV SCH (06:24)
[2021-07-13 08:00] VITALS: BP 128/54
[2021-07-13] MEDS: INSULIN DEGLUDEC 50 UNIT SQ SCH (09:00)
[2021-07-13] MEDS: FISH OIL 1000 MG/CAP PO SCH (09:00)
[2021-07-13] MEDS: LIRAGLUTIDE 1.8 MG SQ SCH (09:00)
[2021-07-13] MEDS: LISINOPRIL 2.5 MG TABLET PO SCH (09:47)
[2021-07-13] MEDS: DULOXETINE HCL 30 MG CAP PO SCH (09:47)
[2021-07-13] MEDS: ISOSORBIDE MONO 30MG SR TAB PO SCH (09:47)
[2021-07-13] MEDS: PANTOPRAZOLE 40 MG TAB DR PO SCH (09:47)
[2021-07-13] MEDS: METOPROLOL TARTRATE 25 MG TAB PO SCH (09:47)
[2021-07-13] MEDS: CEFTRIAXONE 1G VIAL IVP SCH (09:48)
[2021-07-13 12:00] VITALS: BP 133/62
[2021-07-13] MEDS ORDERED: ACET1TAB25 PO (14:07)
[2021-07-13] MEDS ORDERED: DOCUSATE SODIUM 100 MG CAP PO SCH ×2 (14:30→21:00)
== END 2021-07-13 18:30 | disposition home or self-care (01) | DRG 419 ==
LOC: EDH 11:30 → 3BH 13:31
PROVIDERS: ADMIT Hospitalist; ATTEND Hospitalist
PROC: 0FT44ZZ Resection of Gallbladder, Percutaneous Endoscopic Approach (ICD-10-PCS; principal; 2021-07-12 08:39)
DX: K81.0 Acute cholecystitis (principal); K82.8 Other specified diseases of gallbladder; E11.9 Type 2 diabetes mellitus without complications; I10 Essential (primary) hypertension; I25.10 Atherosclerotic heart disease of native coronary artery without angina pectoris; M19.90 Unspecified osteoarthritis, unspecified site; F32.A Depression, unspecified; E78.5 Hyperlipidemia, unspecified; K76.0 Fatty (change of) liver, not elsewhere classified; K43.9 Ventral hernia without obstruction or gangrene; Z53.29 Procedure and treatment not carried out because of patient's decision for other reasons; Z20.822 Contact with and (suspected) exposure to COVID-19; Z95.2 Presence of prosthetic heart valve; Z91.040 Latex allergy status; Z88.7 Allergy status to serum and vaccine; Z88.8 Allergy status to other drugs, medicaments and biological substances; Z91.048 Other nonmedicinal substance allergy status; Z90.710 Acquired absence of both cervix and uterus; Z82.3 Family history of stroke; Z83.3 Family history of diabetes mellitus; Z82.49 Family history of ischemic heart disease and other diseases of the circulatory system; K66.0 Peritoneal adhesions (postprocedural) (postinfection)
CPT/HCPCS: 36415; 71045; 74176; 74177; 76705; 78227; 80053; 81003; 82948; 83036; 83690; 84145; 84484; 85025; 86140; 87635; 93005; 96361; 96374; A9537; G0378; J0330; J0696; J1815; J1885; J2001; J2270; J2370; J2405; J2704; J2710; J3010; J3490; J7030; Q0163; Q9967

== ENCOUNTER 2023-11-30 08:34 | Emergency (ER) | payer OTHER, MEDICARE ==
[~2023-11-30] VITALS: Ht 160 cm; Wt 93.9 kg
[~2023-11-30 08:34] MED LIST changes: +ACET-2079 PO; +CLOP-31 PO; -CLOP75TA14 PO; +DEXL60CA3 PO
[2023-11-30 08:45] LABS: BASOPHILS # (AUTO) 0.04 K/uL (0.00-0.20); BASOPHILS % (AUTO) 0.3 % (0.0-5.0); EOSINOPHILS % (AUTO) 0.8 % (0.0-8.0); HEMATOCRIT 37.2 % (36-48); IMMATURE GRANULOCYTE ABSOLUTE 0.05 K/uL (0-1); LYMPHOCYTES # (AUTO) 1.6 K/uL (1.0-4.8); LYMPHOCYTES % (AUTO) 13.1 % (21.0-51.0); MEAN CORPUSCULAR HEMOGLOBIN 30.2 pg (27.0-33.0); MEAN CORPUSCULAR HGB CONC 33.3 g/dL (32.0-36.0); MEAN CORPUSCULAR VOLUME 90.7 fL (79-99); MONOCYTES # (AUTO) 0.9 K/uL (0.1-1.0); MONOCYTES % (AUTO) 7.3 % (3.0-13.0); NEUTROPHILS # (AUTO) 9.6 K/uL (1.8-7.7); NEUTROPHILS % (AUTO) 78.1 % (40.0-77.0); PLATELET COUNT (AUTO) 257 K/uL (130-400); RED CELL DISTRIBUTION WIDTH 13.8 % (11.0-15.5); WHITE BLOOD COUNT (AUTO) 12.3 K/uL (4.8-10.8)
[2023-11-30 08:54] LABS: CREATININE 1.1 mg/dL (0.5-1.0); POTASSIUM 4.8 mmol/L (3.5-5.1)
[2023-11-30 08:58] LABS: ALBUMIN 3.1 g/dL (3.5-5.0); BILIRUBIN,TOTAL 0.6 mg/dL (0.2-1.0); TOTAL PROTEIN, SERUM 7.1 g/dL (6.0-8.3)
[2023-11-30] MEDS: 0.9% NACL 500ML IV.SOLN 500 ML IV ONE (09:01)
[2023-11-30] MEDS: KETOROLAC 15MG/ML VIAL (15MG/ML) IV ONE (09:01)
[2023-11-30] MEDS ORDERED: PANT40TA54 PO (09:34)
[2023-11-30] MEDS ORDERED: IOHEXOL 350 MG/ML 100ML INFUS..BTL IV ONE (10:01)
[2023-11-30 11:13] LABS: APPEARANCE,URINE TURBID (CLEAR); BILIRUBIN,URINE NEGATIVE (NEGATIVE); COLOR,URINE LIGHT-ORANGE (YELLOW); GLUCOSE, URINE (UA) 30 mg/dL (NEGATIVE); KETONES,URINE NEGATIVE (NEGATIVE); LEUKOCYTE ESTERASE ,URINE 500 Leu/uL (NEGATIVE); NITRATE,URINE NEGATIVE (NEGATIVE); OCCULT BLOOD,URINE MODERATE (NEGATIVE); PH,URINE 5.5 (5.0-8.0); PROTEIN,URINE 70 mg/dL (NEGATIVE); UROBILINOGEN,URINE 0.2 mg/dL (0.2-1.0)
[2023-11-30 11:15] LABS: ADD UA MICROSCOPIC YES
[2023-11-30 11:18] LABS: BACTERIA,URINE MANY /HPF (None Seen); MUCUS,URINE RARE LPF (None Seen); SQUAMOUS EPITHELIAL CELL,UR FEW /HPF (0-2); WBC CLUMP MANY /HPF (0-1); WBC,URINE TNTC /HPF (0-1)
[2023-11-30] MEDS: CEFTRIAXONE 1G VIAL IVPB ONE (11:32)
[2023-11-30 11:37] VITALS: BP 13/62; PULSE 73; RESP 18; O2SAT 96
[2023-11-30] MEDS ORDERED: ACET-2079 PO (11:37)
[2023-11-30] MEDS ORDERED: MACR100 PO (11:37)
== END 2023-11-30 11:54 | disposition home or self-care (01) ==
LOC: EDH 08:34
DX: R10.9 Unspecified abdominal pain (principal); N39.0 Urinary tract infection, site not specified; E11.9 Type 2 diabetes mellitus without complications; Z79.02 Long term (current) use of antithrombotics/antiplatelets; Z79.4 Long term (current) use of insulin; Z79.82 Long term (current) use of aspirin; Z79.85 Long-term (current) use of injectable non-insulin antidiabetic drugs; Z79.899 Other long term (current) drug therapy; Z88.7 Allergy status to serum and vaccine; Z95.1 Presence of aortocoronary bypass graft
CPT/HCPCS: 99285; 74177; 96365; 96361; 96375; 84484; 80053; 83690; 85025; 87077; 87088; 87186; 81001; 36415; 93005; J7040; J0696; J1885; Q9967

== ENCOUNTER 2023-12-13 10:07 | Emergency (ER) | payer OTHER, MEDICARE ==
[~2023-12-13] VITALS: Ht 160 cm; Wt 91.6 kg
[~2023-12-13 10:07] MED LIST changes: -CLOP-31 PO; -DEXL60CA3 PO; -DICY20TA2 PO; +MACR100 PO; -METH4TAB3 PO; -ONDA4TAB10 PO; +PANT40TA54 PO
[2023-12-13 10:51] LABS: BASOPHILS # (AUTO) 0.03 K/uL (0.00-0.20); BASOPHILS % (AUTO) 0.4 % (0.0-5.0); EOSINOPHILS # (AUTO) 0.13 K/uL (0.00-0.70); EOSINOPHILS % (AUTO) 1.8 % (0.0-8.0); HEMATOCRIT 34.6 % (36-48); IMMATURE GRANULOCYTE ABSOLUTE 0.02 K/uL (0-1); LYMPHOCYTES # (AUTO) 1.5 K/uL (1.0-4.8); LYMPHOCYTES % (AUTO) 20.5 % (21.0-51.0); MEAN CORPUSCULAR HEMOGLOBIN 29.8 pg (27.0-33.0); MEAN CORPUSCULAR HGB CONC 32.9 g/dL (32.0-36.0); MEAN CORPUSCULAR VOLUME 90.3 fL (79-99); MONOCYTES # (AUTO) 0.4 K/uL (0.1-1.0); MONOCYTES % (AUTO) 6.2 % (3.0-13.0); NEUTROPHILS % (AUTO) 70.8 % (40.0-77.0); PLATELET COUNT (AUTO) 269 K/uL (130-400); RED BLOOD CELL COUNT(AUTO) 3.83 MIL/uL (4.00-5.50); RED CELL DISTRIBUTION WIDTH 13.9 % (11.0-15.5); WHITE BLOOD COUNT (AUTO) 7.1 K/uL (4.8-10.8)
[2023-12-13 11:06] LABS: CREATININE 0.9 mg/dL (0.5-1.0); POTASSIUM 4.6 mmol/L (3.5-5.1)
[2023-12-13 11:07] LABS: APPEARANCE,URINE TURBID (CLEAR); BILIRUBIN,URINE NEGATIVE (NEGATIVE); COLOR,URINE LIGHT-ORANGE (YELLOW); GLUCOSE, URINE (UA) TRACE mg/dL (NEGATIVE); KETONES,URINE NEGATIVE (NEGATIVE); LEUKOCYTE ESTERASE ,URINE 500 Leu/uL (NEGATIVE); NITRATE,URINE NEGATIVE (NEGATIVE); OCCULT BLOOD,URINE MODERATE (NEGATIVE); PROTEIN,URINE 30 mg/dL (NEGATIVE); UROBILINOGEN,URINE 0.2 mg/dL (0.2-1.0)
[2023-12-13 11:10] LABS: ADD UA MICROSCOPIC YES
[2023-12-13 11:18] LABS: BACTERIA,URINE MANY /HPF (None Seen); RBC,URINE 51-100 /HPF (0-1); SQUAMOUS EPITHELIAL CELL,UR MOD /HPF (0-2); WBC CLUMP MANY /HPF (0-1); WBC,URINE TNTC /HPF (0-1)
[2023-12-13 11:21] LABS: HYALINE CASTS, URINE 0-1 /LPF (0-1 /LPF)
[2023-12-13 11:53] VITALS: BP 138/47; PULSE 75; RESP 18; O2SAT 97
[2023-12-13] MEDS: LEVOFLOXACIN 750 MG TABLET PO SCH (12:12)
[2023-12-13] MEDS ORDERED: LEVO750T68 PO (12:20)
[2023-12-13] MEDS ORDERED: PHEN-847 PO (12:20)
== END 2023-12-13 12:45 | disposition home or self-care (01) ==
LOC: EDH 10:07
DX: N39.0 Urinary tract infection, site not specified (principal); E11.9 Type 2 diabetes mellitus without complications; Z79.4 Long term (current) use of insulin; Z79.82 Long term (current) use of aspirin; Z79.85 Long-term (current) use of injectable non-insulin antidiabetic drugs; Z79.899 Other long term (current) drug therapy; Z90.49 Acquired absence of other specified parts of digestive tract; Z88.7 Allergy status to serum and vaccine; Z90.710 Acquired absence of both cervix and uterus; Z95.1 Presence of aortocoronary bypass graft; Z98.890 Other specified postprocedural states
CPT/HCPCS: 36415; 80048; 81001; 85025; 87077; 87088; 87186

== ENCOUNTER → 2024-08-21 | Outpatient (CLI) | payer MEDICARE ==
[~2024-08-21] MED LIST changes: +LEVO750T68 PO; +PHEN-847 PO
== END | disposition home or self-care (01) ==
LOC: SHCH 13:34
PROVIDERS: ATTEND Internal Medicine Cardiovascular Disease
DX: I35.0 Nonrheumatic aortic (valve) stenosis (principal)
CPT/HCPCS: 93306

== ENCOUNTER → 2024-10-29 | Outpatient (CLI) | payer OTHER ==
[2024-10-29] MEDS: REGADENOSON 0.4 MG/5 ML PF SYG IVP ONE (12:30)
--- NOTE | 2024-10-29 16:10 | HMCSR ---
APPROVED REPORT Height: 5 ft 3in Weight: 201 lbs TEST INDICATIONS Unstable Angina The imaging protocol used to acquire images was Rest Tc-99m/stress Tc-99m 1 day Consent: The procedure was explained and understood by the patient. Informerd consent was witnessed Filomena Wade RN First, low dose rest was performed then high dose stress. RESTING DATA: The resting ekg shows: NSR Rest SPECT myocardial perfusion imaging was performed in supine position 69 minutes following the int ravenous injection of 10 mCi of Tc-99 Sestamibi. Time of rest injection: 08:54: Date: 10/29/2024 Time of rest imagin:03: Date: 10/29/2024 PHARMACOLOGIC STRESS: Pharmacologic stress test was performed by injecting regadenoson 0.4 mg IV push followed by the intra venous injection of 33 mCi of Tc-99 Sestamibi. Time of stress injection: 10:36: Date: 10/29/2024 Time of stress imagin:53: Date: 10/29/2024 Heart Rate at time of stress injection: 86 bpm. Gated Stress SPECT was performed 77 minutes after stress injection. The images were gated to evaluate regional wall motion and calculate left ventricular ejection fracti on. STRESS DETAILS Reason for Termination: Infusion complete Stress Symptoms: No chest pain or symptoms Max HR Achieved: 90 bpm % of APMHR Achieved: 66 Max Blood Pressure: 154/75 mmHg Stress ECG: NSR Study quality was good. Lung uptake was Normal. Artifact: motion artifactbreast and diaphragmatic artifact LEFT VENTRICLE Size: The left ventricular size is normal. Systolic Function:The left ventricular systolic function is normal. Wall Motion: No regional wall motion abnormalities noted. The left ventricular ejection fraction was calculated to be 77%.TID = . LV PERFUSION The rest and stress images show normal perfusion. IMPRESSION Normal pharmacologic nuclear stress test. Global LV Function: Normal Stress ECG Summary: Abnormal, Nondiagnostic LV Perfusion Summary: Normal Conclusion Normal pharmacologic nuclear stress test. Global LV Function: Normal Stress ECG Summary: Abnormal, Nondiagnostic LV Perfusion Summary: Normal
== END | disposition home or self-care (01) ==
LOC: SHCH 08:17
PROVIDERS: ATTEND Internal Medicine Cardiovascular Disease
DX: I20.0 Unstable angina (principal); I48.0 Paroxysmal atrial fibrillation
CPT/HCPCS: 78452; 93017; J2785; A9500 ×2